=== PATIENT | female | born 2005 | race Caucasian/White ===

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

== ENCOUNTER 2025-05-25 14:23 | Emergency (ER) | payer BC ==
[2025-05-25] MEDS ORDERED: NA CHLORIDE 0.9% 1,000 ML ONE (14:43)
[2025-05-25 14:56] LABS: Hematocrit 41.7 % (36.0-45.0); Hemoglobin 13.7 g/dL (12.0-15.0); RBC Red Blood Cell Count 5.50 M/uL (3.86-4.86); White Blood Count 7.80 thou/uL (4.3-10.9)
[2025-05-25 14:57] LABS: Absolute Lymphocytes (CBC) 2.7 K/uL (0.7-4.9); MCH 24.9 pg (27.0-35.0); MCHC 32.9 g/dL (32.0-36.0); MCV 75.8 fL (80-100); MPV 8.6 fL (7.6-11.3); Nucleated RBC Absolute Count 0.0 (0-0); Nucleated Red Blood Cells % 0.1 % (0-0)
[2025-05-25 15:15] LABS: ALT/SGPT 22 U/L (13-56); AST/SGOT 11 U/L (15-37); Albumin 4.1 g/dL (3.4-5.0); Albumin/Globulin Ratio 1.1 (1.1-1.8); Alkaline Phosphatase 77 U/L (45-117); Anion Gap 10.2 mEq/L (5.0-15.0); BUN Blood Urea Nitrogen 14 mg/dL (7-18); Bilirubin Indirect, Calculated 0.1 mg/dL (0.2-0.8); Globulin 3.7 g/dL (2.3-3.5); Glucose Level 386 mg/dL (74-106); Potassium 4.2 mEq/L (3.5-5.1)
--- NOTE | 2025-05-25 15:28 | ER ---
Nurse's Notes [facility] Name: iAssatou Terrazas Age: 20 yrs Sex: Female : 2005 Arrival Date: 05/25/2025 Time: 14:23 Bed 13 Private MD: Diagnosis: Type 1 diabetes mellitus with hyperglycemia Presentation: 05/25 14:29 Chief complaint: Patient states: high blood sugar since last night. Pt reports she has aa5 insulin pump. Coronavirus screen: At this time, the client does not indicate any symptoms associated with coronavirus-19. Ebola Screen: Patient denies travel to an Ebola-affected area in the 21 days before illness onset. Initial Sepsis Screen: Does the patient meet any 2 criteria? HR > 90 bpm. Does the patient have a suspected source of infection? No. Patient's initial sepsis screen is negative. Risk Assessment: Do you want to hurt yourself or someone else? Patient reports no desire to harm self or others. Onset of symptoms was May 2025. 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 - Infectious Disease History:: Denies. - Social history:: Smoking status: Patient denies any tobacco usage or history of. Screenin:40 [facility] ED Fall Risk Assessment (Adult) History of falling in the last 3 months, me1 including since admission No falls in past 3 months (0 pts) Confusion or Disorientation No (0 pts) Intoxicated or Sedated No (0 pts) Impaired Gait No (0 pts) Mobility Assist Device Used No (0 pt) Altered Elimination No (0 pt) Score/Fall Risk Level 0 - 2 = Low Risk Maintained a safe environment, Provided non-skid footwear, Hourly rounding (assess needs \T\ fall precautionary measures) done. Abuse screen: Denies threats or abuse. Nutritional screening: No deficits noted. Tuberculosis screening: No symptoms or risk factors identified. Assessment: 14:40 General: Appears in no apparent distress. well groomed, well developed, well nourished, me1 Behavior is calm, cooperative, appropriate for age, Reports high blood sugar since last night. Pt reports she has insulin pump. Pain: Denies pain. Neuro: Level of Consciousness is awake, alert, obeys commands, Oriented to person, place, time, situation, Appropriate for age. Cardiovascular: Patient's skin is warm and dry. Respiratory: Airway is patent Respiratory effort is even, unlabored, Respiratory pattern is regular, symmetrical. GI: No signs and/or symptoms were reported involving the gastrointestinal system. : No signs and/or symptoms were reported regarding the genitourinary system. EENT: No signs and/or symptoms were reported regarding the EENT system. Derm: Skin is intact, is healthy with good turgor, Skin is pink, warm \T\ dry. Musculoskeletal: No signs and/or symptoms reported regarding the musculoskeletal system. 15:33 Reassessment: Discharge delayed for IV Fluids to finish. me1 Vital Signs: 14:29 BP 127 / 61; Pulse 97; Resp 18 S; Temp 98.2(TE); Pulse Ox 99% on R/A; Weight 79.38 kg aa5 (R); Height 5 ft. 2 in. (R); Pain 0/10; 15:30 BP 116 / 67; Pulse 82; Resp 16; Pulse Ox 100% ; me1 16:00 BP 143 / 79; Pulse 73; Resp 16; Temp 98.1; Pulse Ox 100% ; me1 14:29 Body Mass Index 32.01 (79.38 kg, 157.48 cm) - Percentile 95.2 % aa5 14:29 Pain Scale: Adult aa5 ED Course: 14:26 Patient arrived in ED. mr 14:28 Douglas Avila DO is Attending Physician. ms3 14:29 Arm band placed on. aa5 14:31 Triage completed. aa5 14:40 Dulce Martins, RN is Primary Nurse. me1 14:40 Patient has correct armband on for positive identification. Bed in low position. Call ny1 light in reach. Side rails up X 1. Provided Education on: POC. Verbalized understanding.. Client placed on continuous cardiac and pulse oximetry monitoring. NIBP monitoring applied. software sales consultant on. Pulse ox on. NIBP on. 14:40 No provider procedures requiring assistance completed. me1 15:03 Basic Metabolic Panel Sent. me1 15:03 Hepatic Function Sent. me1 15:04 Initial lab(s) drawn, by me, sent to lab. EKG done, by ED staff, reviewed by Douglas Avila DO. Inserted saline lock: 22 gauge in right antecubital area, using aseptic technique. 15:27 Charli Clement DO is Referral Physician. ms3 16:09 IV discontinued, intact, bleeding controlled, No redness/swelling at site. Pressure me1 dressing applied. Administered Medications: 15:03 Drug: NS 0.9% IV 1000 ml IV at 1000 ml once; to be given as a bolus over 60 minutes me1 Route: IV; Rate: 1000 ml; Site: right antecubital; 16:07 Follow up: Response: No adverse reaction; IV Status: Completed infusion; IV Intake: me1 1000ml Medication: 14:40 VIS not applicable for this client. me1 Intake: 16:07 IV: 1000ml; Total: 1000ml. me1 Outcome: 15:28 Discharge ordered by MD. ms3 16:09 Discharged to home ambulatory, me1 16:09 Condition: stable 16:09 Discharge instructions given to patient, Instructed on discharge instructions, follow up and referral plans. Demonstrated understanding of instructions, follow-up care, 16:10 Patient left the ED. me1 Signatures: Janet Paredes, Shar Reg HectorLinda, RN RN aa5 Douglas Avila DO DO ms3 Dulce Martins, RN RN me1 Corrections: (The following items were deleted from the chart) 14:32 14:29 Pulse 97bpm; Resp 18bpm; Spontaneous; Pulse Ox 99% RA; Temp 98.2F Temporal; aa5 aa5 14:33 14:29 PMHx: Diabetes - IDDM; aa5 aa5 14:33 14:29 Pulse 97bpm; Resp 18bpm; Spontaneous; Pulse Ox 99% RA; Temp 98.2F Temporal; 79.38 aa5 kg Reported; Height 5 ft. 2 in. Reported; BMI: 32.0 (95.2%); aa5 15:18 14:29 Chief complaint: Patient states: high blood sugar since last night. Pt reports me1 she has insulin pump. aa5
--- NOTE | 2025-05-25 15:28 | EDPHYS ---
Physician Documentation [facility] Name: Aissatou Terrazas Age: 20 yrs Sex: Female : 2005 Arrival Date: 05/25/2025 Time: 14:23 Bed 13 Private MD: ED Physician Douglas Avila HPI: 05/25 14:36 This 20 yrs old Female presents to ER via Ambulatory with complaints of High Blood ms3 Sugar. 14:36 20-year-old female with past medical history of diabetes presents to the emergency de3 department for elevated blood glucose level that began at 8 PM last night. Patient states she changed her pump last night and gave herself insulin and waited 2 hours and noted her sugars to be going down. She then went to sleep. On waking up this morning she noted her blood sugar to be 400. Arrival at work patient states her blood sugar was 301 and she ate a snack. At lunch patient noted her blood glucose level to be 504 so she took additional insulin. 1 hour after that patient rechecked her glucose and it was 395. Patient states prior to arrival her blood glucose level was 500. Patient denies pain, nausea, vomiting. 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 - Infectious Disease History:: Denies. - Social history:: Smoking status: Patient denies any tobacco usage or history of. ROS: 14:36 Constitutional: Negative for fever, and chills. Cardiovascular: Negative for chest ms3 pain, and palpitations. Respiratory: Negative for shortness of breath, cough, wheezing, and pleuritic chest pain, Abdomen/GI: Negative for abdominal pain, nausea, vomiting, diarrhea, and constipation, MS/Extremity: Negative for injury and deformity, Skin: Negative for injury, rash, and discoloration, Exam: 14:36 Constitutional: This is a well developed, well nourished patient who is awake, alert, ms3 and in no acute distress. Cardiovascular: Regular rate and rhythm with a normal S1 and S2. No gallops, murmurs, or rubs. Normal PMI, no JVD. No pulse deficits. Respiratory: Lungs have equal breath sounds bilaterally, clear to auscultation and percussion. No rales, rhonchi or wheezes noted. No increased work of breathing, no retractions or nasal flaring. Abdomen/GI: Soft, non-tender, with normal bowel sounds. No distension or tympany. No guarding or rebound. No evidence of tenderness throughout. 15:28 ECG was reviewed by the Attending Physician. ms3 Vital Signs: 14:29 BP 127 / 61; Pulse 97; Resp 18 S; Temp 98.2(TE); Pulse Ox 99% on R/A; Weight 79.38 kg aa5 (R); Height 5 ft. 2 in. (R); Pain 0/10; 15:30 BP 116 / 67; Pulse 82; Resp 16; Pulse Ox 100% ; me1 16:00 BP 143 / 79; Pulse 73; Resp 16; Temp 98.1; Pulse Ox 100% ; me1 14:29 Body Mass Index 32.01 (79.38 kg, 157.48 cm) - Percentile 95.2 % aa5 14:29 Pain Scale: Adult aa5 MDM: 14:36 Differential diagnosis: DKA, hyperglycemia. ms3 14:38 Medical Screening Exam initiated ms3 15:54 Data reviewed: vital signs, nurses notes, lab test result(s), and as a result, I will ms3 discharge patient. Management of patient was discussed with the following: Primary Care Provider: Dr Clement. I considered the following discharge prescriptions or medication management in the emergency department Medications were administered in the Emergency Department. See MAR. Independent interpretation of the following test(s) in the Emergency Department EKG: See my EKG interpretation above. Counseling: I had a detailed discussion with the patient and/or guardian regarding the historical points, exam findings, and any diagnostic results supporting the discharge/admit diagnosis, lab results, the need for outpatient follow up, to return to the emergency department if symptoms worsen or persist or if there are any questions or concerns that arise at home. Special discussion: I discussed with the patient/guardian in detail that at this point there is no indication for admission to the hospital. It is understood, however, that if the symptoms persist or worsen the patient needs to return immediately for re-evaluation. ED course: Discussed insulin administration with patient. Patient declined states she would rather go home and change her pump. Patient given IV fluids in the emergency department. Patient without elevated anion gap to suggest DKA. Patient to follow-up with endocrinology in 2 to 3 days. Patient understands and agrees with plan. All questions were answered. Return precautions discussed include worsening symptoms, vomiting, or any other concerns. On reevaluation patient is alert and oriented x 4, no apparent distress, nontoxic-appearing, speaking full sentences.. 05/25 14:28 Order name: Basic Metabolic Panel; Complete Time: 15:20 ms3 05/25 14:28 Order name: CBC with Diff; Complete Time: 15:20 ms3 05/25 14:28 Order name: Hepatic Function; Complete Time: 15:20 ms3 05/25 14:28 Order name: EKG; Complete Time: 14:28 ms3 05/25 14:28 Order name: Cardiac monitoring; Complete Time: 15:03 ms3 05/25 14:28 Order name: EKG - Nurse/Tech; Complete Time: 15:03 ms3 05/25 14:28 Order name: IV Saline Lock; Complete Time: 15:03 ms3 05/25 14:28 Order name: NPO; Complete Time: 15:03 ms3 05/25 14:28 Order name: O2 Per Protocol; Complete Time: 15:03 ms3 05/25 14:28 Order name: O2 Sat Monitoring; Complete Time: 15:03 ms3 EC:28 Rate is 81 beats/min. Rhythm is regular. QRS [place] is Normal. OH interval is normal. QRS ms3 interval is normal. Clinical impression: Normal ECG. Interpreted by me. Reviewed by me. Administered Medications: 15:03 Drug: NS 0.9% IV 1000 ml IV at 1000 ml once; to be given as a bolus over 60 minutes me1 Route: IV; Rate: 1000 ml; Site: right antecubital; 16:07 Follow up: Response: No adverse reaction; IV Status: Completed infusion; IV Intake: me1 1000ml Disposition Summary: 05/25/25 15:28 Discharge Ordered Notes: Location: Home ms3 Condition: Stable ms3 Diagnosis - Type 1 diabetes mellitus with hyperglycemia ms3 Followup: ms3 - With: Charli Clement, DO - When: 2 - 3 days - Reason: Recheck today's complaints Discharge Instructions: - Discharge Summary Sheet ms3 - Hyperglycemia ms3 Forms: - Medication Reconciliation Form ms3 - Antibiotic Education ms3 - Prescription Opioid Use ms3 - Patient Portal Instructions ms3 - Leadership Thank You Letter ms3 - Work release form me1 Signatures: Dispatcher [employer] Linda Horan, RN RN aa5 Douglas Avila, DO ms3 Dulce Martins RN RN me1 Corrections: (The following items were deleted from the chart) 14:33 14:29 PMHx: Diabetes - IDDM; aa5 aa5 14:37 14:28 BETA HYDROXYBUTYRATE+C.LAB.BRZ ordered. EDMS EDMS 14:37 14:28 LIPASE+C.LAB.BRZ ordered. EDMS EDMS 14:37 14:28 PHOSPHORUS+C.LAB.BRZ ordered. EDMS EDMS 14:37 14:28 Venous Blood Gas+RC.LAB.BRZ ordered. EDMS EDMS
[2025-05-25 22:21] VITALS: BP 143/79; TEMP 98.1; O2SAT 100
== END 2025-05-25 16:10 | disposition home or self-care (01) ==
LOC: ER 14:23
DX: E10.65 Type 1 diabetes mellitus with hyperglycemia (principal); Z96.41 Presence of insulin pump (external) (internal)
CPT/HCPCS: 93005; 85025; 80048; 36415; 80076; 96360; 99285; J7030